=== PATIENT | male | born 1965 | race Caucasian/White ===

== ENCOUNTER → 2022-11-17 13:02 | Outpatient (CLI) | payer OTHER, SELFPAY ==
--- NOTE | 2022-11-17 | DI.MRI.S_ITS ---
PROCEDURE: MR FOOT RT WO/W CON INDICATIONS: Plantar fascial fibromatosis TECHNIQUE: Noncontrast sagittal T1 spin echo and T2 fast spin echo with fat saturation, long-axis T1 spin echo and STIR; short-axis T1 spin echo with and without fat saturation, and T2 fast spin echo with fat saturation through the forefoot. Post-contrast short axis, long axis, and sagittal T1 spin echo with fat saturation through the forefoot. COMPARISON: [facility] [place], CR, XR FOOT 3+ VIEWS RIGHT, 10/25/2022, 9:36. FINDINGS: Image quality: Excellent. Bones and joints: No suspicious osseous enhancement. No bone marrow contusions or metatarsal stress fractures. The sesamoid bones appear in expected positions, without internal edema. 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 Scattered degenerative changes are seen at the interphalangeal joints of the toes. Soft tissues: Lobular bilobed intermediate signal intensity mass is seen at the plantar aspect of the foot centered on the plantar aponeurosis medially at the level of the 1st metatarsal. There is homogeneous enhancement. The lesion measures up to 4.7 x 2.6 x 1.7 cm maximum dimensions. No additional enhancing soft tissue mass is seen. The adjacent plantar foot musculature is normal in signal intensity and bulk. Visualized flexor and extensor tendons appear intact, without tenosynovitis. The distal insertions of the peroneus brevis and longus tendons appear intact. The principal Lisfranc ligament appears intact. Sagittal images demonstrate no evidence for plantar plate tears. IMPRESSION: Lobular bilobed 4.7 cm intermediate signal intensity enhancing mass centered at the plantar aponeurosis at the medial forefoot, and has imaging characteristics compatible with a plantar fibroma. Approved by: Talib Lazo M.D. on 11/17/2022 at 20:13
--- NOTE | 2022-11-17 | DI.MRI.S_ITS ---
PROCEDURE: MR FOOT LT WO/W CON INDICATIONS: Plantar fascial fibromatosis TECHNIQUE: Noncontrast sagittal T1 spin echo and T2 fast spin echo with fat saturation, long-axis T1 spin echo and STIR; short-axis T1 spin echo with and without fat saturation and T2 fast spin echo with fat saturation through the forefoot. Post-contrast short axis, long axis, and sagittal T1 spin echo with fat saturation through the forefoot. COMPARISON: [facility] [place], CR, XR FOOT 3+ VIEWS LEFT, 10/25/2022, 9:35. FINDINGS: Image quality: Excellent. Bones and joints: No suspicious osseous enhancement. No bone marrow contusions or metatarsal stress fractures. The sesamoid bones appear in expected positions, without internal edema. [id number] degenerative changes at the 1st metatarsophalangeal joint. Scattered degenerative changes are seen at the interphalangeal joints of the toes. Soft tissues: Lobulated intermediate signal intensity mass is seen centered at the plantar aponeurosis at the level of the 1st metatarsal shaft. Mass measures approximately 5.1 x 3.3 x 1.8 cm and demonstrates homogeneous hyperenhancement. No other soft tissue mass is identified in the remainder of the foot. The adjacent plantar foot musculature is intact and normal in bulk and signal intensity. Visualized flexor and extensor tendons appear intact, without tenosynovitis. The distal insertions of the peroneus brevis and longus tendons appear intact. The principal Lisfranc ligament appears intact. Sagittal images demonstrate no evidence for plantar plate tears. IMPRESSION: Lobulated enhancing 5.1 cm intermediate signal intensity mass centered on the plantar aponeurosis at the plantar medial aspect of the forefoot has imaging features compatible with a plantar fibroma. Approved by: Talib Lazo M.D. on 11/17/2022 at 20:15
== END ==
PROVIDERS: Referring Provider Podiatrist; Visit Provider Podiatrist
DX: M72.2 Plantar fascial fibromatosis (principal); M19.071 Primary osteoarthritis, right ankle and foot
CPT/HCPCS: 73720; A9579

== ENCOUNTER → 2024-10-02 16:27 | Outpatient (CLI) | payer OTHER, SELFPAY ==
--- NOTE | 2024-10-02 16:28 | DI.US.S_ITS ---
PROCEDURE: US ABDOMEN LIMITED INDICATIONS: abdominal pain TECHNIQUE: Real-time focused scanning was performed of the abdomen, with image documentation. COMPARISON: None. FINDINGS: The liver is significantly enlarged at 21.6 cm craniocaudad and demonstrates pronounced increased echotexture consistent with diffuse fatty infiltration. There is a small geographic area of focal sparing from otherwise diffuse fatty infiltration adjacent to the gallbladder fossa, a common finding. 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 Flow velocity is maintained at a normal value, however, rather than reduced. Gallbladder is normal. Bile ducts are not dilated. The pancreas visualized is poorly seen due to bowel gas. Spleen volume is enlarged at 4:30 a.m. 4 cc. IMPRESSION: Hepatosplenomegaly without visualized ascites or varices. 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 Spleen also is enlarged in volume. This is the set of findings likely associated with reported right upper quadrant pain. Gallbladder and bile ducts normal. Dictated by: Pedro Mcdowell M.D. on 10/03/2024 at 14:26 Approved by: Pedro Mcdowell M.D. on 10/03/2024 at 14:32
== END ==
PROVIDERS: PCP Nurse Practitioner Family; Referring Provider Surgery; Visit Provider Surgery
DX: R10.11 Right upper quadrant pain (principal); R16.2 Hepatomegaly with splenomegaly, not elsewhere classified
CPT/HCPCS: 76705